=== PATIENT | male | born 1950 | race Caucasian/White ===

== ENCOUNTER 2020-08-23 20:03 | Inpatient (IN) | payer OTHER, MEDICAID ==
[~2020-08-23] VITALS: Ht 172.7 cm; Wt 91.2 kg
[2020-08-23 20:05] VITALS: Ht 172.7 cm; Wt 91.2 kg
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
[2020-08-23 21:32] LABS: BASOPHIL % 0.3 % (0-2); PLATELET COUNT 205 x10^3mcL (130-400)
--- NOTE | 2020-08-23 21:32 | NUR ---
PT TAKEN TO CT, ALL VITALS ARE STABLE. PT EASILY WAKENED WITH VERBAL STIMULI, PT IS ABLE TO STATE HIS NAME AND ALSO HE NOW RECOGNIZES THAT HE IS AT [facility]. CONTINUES WITH SLURRED SLOW SPEECH AND EASILY FALLS BACK TO SLEEP, WILL MONITOR
[2020-08-23 21:37] LABS: RED CELL DISTRIBUTION WIDTH 14.8 % (11.5-14.5)
[2020-08-23 22:00] LABS: ALKALINE PHOSPHATASE 224 U/L (46-116); ALT/SGPT 30 U/L (16-63); AST/SGOT 25 U/L (15-37); BILIRUBIN TOTAL 0.4 mg/dL (0.20-1.00); CARBON DIOXIDE 20.1 mmol/L (21-32); CHLORIDE SERUM 101 mmol/L (98-107); CREATININE SERUM 2.4 mg/dL (0.7-1.3); GFR1 29 mL/min; SODIUM SERUM 131 mmol/L (136-145); TOTAL PROTEIN, SERUM 6.7 g/dL (6.4-8.2)
[2020-08-23 22:02] LABS: ALBUMIN 3.3 g/dL (3.4-5.0)
[2020-08-23 22:04] LABS: GLUCOSE SERUM 553 mg/dL (74-106); POTASSIUM SERUM 7.6 mmol/L (3.5-5.1)
--- NOTE | 2020-08-23 22:18 | NUR ---
PT IN AND OUT OF SLEEP, EASILY WAKENED, SPEECH IS MORE CLEAR. PT AAO X2. VSS, WILL CLOSELY MONITOR. CONTINUES TO DENY CHEST PAIN OR SOB.
[2020-08-23 22:51] LABS: CALCIUM 7.9 mg/dL (8.5-10.1); CARBON DIOXIDE 21.1 mmol/L (21-32); CREATININE SERUM 2.4 mg/dL (0.7-1.3)
[2020-08-23 22:58] LABS: POTASSIUM SERUM 7.1 mmol/L (3.5-5.1)
[2020-08-23 23:05] LABS: UA SPECIFIC GRAVITY 1.025 (1.005-1.035); urine erythrocyte 1+ (NEGATIVE)
[2020-08-23 23:09] LABS: microscopic required? YES
[2020-08-23 23:15] LABS: AMPHETAMINE QUAL UR NONE DETECTED (See below)
--- NOTE | 2020-08-23 23:49 | NUR ---
RECIEVED REPORT FROM JOSELINE TRAN TO ASSUME CARE OF PT.
--- NOTE | 2020-08-24 00:54 | NUR ---
PT SLEEPING IN BED, EASILY WAKENED. PT DENIES PAIN AT THIS TIME, SPEECH IS MORE CLEAR BUT PT COMPLAINS OF "FEELING TIRED". VSS, CALL LIGHT WITHIN REACH, WILL MONITOR
--- NOTE | 2020-08-24 00:56 | NUR ---
RT CALLED FOR NEBULIZER TREATMENT, PER RT NEBULIZED TREATMENTS ARE TO BE DONE AFTER PT COLUMBA SWAB IS CONFIRMED NEGATIVE.
[2020-08-24 01:41] VITALS: BP 150/88
[2020-08-24] MEDS ORDERED: COLCHICINE0.6 M2 PO (01:55)
[2020-08-24] MEDS ORDERED: PROAIR RES117 MCG/Ac INH (01:56)
[2020-08-24] MEDS ORDERED: AMRIX15 M1 PO (01:58)
[2020-08-24] MEDS ORDERED: FEXMID7.5 M1 PO (02:00)
[2020-08-24] MEDS ORDERED: VITAMIN D50000 I4 PO (02:04)
[2020-08-24] MEDS ORDERED: MONTELUKAST SOD10 M1 PO (02:05)
[2020-08-24] MEDS ORDERED: HUMALOG KW100 UNIT/1 SQ (02:05)
[2020-08-24] MEDS ORDERED: LYRICA50 M1 PO (02:06)
[2020-08-24] MEDS ORDERED: PLAVIX75 M1 PO (02:06)
[2020-08-24] MEDS ORDERED: LANTUS SOLOS100 U/M1 SC (02:07)
[2020-08-24] MEDS ORDERED: BUMETANIDE1 MG PO (02:08)
[2020-08-24] MEDS ORDERED: FINASTERIDE1 MG PO (02:08)
[2020-08-24] MEDS ORDERED: AZOR 10-20 MG1 EACH PO (02:09)
[2020-08-24] MEDS ORDERED: PEPCID AC20 M2 PO (02:10)
[2020-08-24] MEDS ORDERED: LIPI20 PO (02:10)
[2020-08-24] MEDS ORDERED: ESCITALOPRAM OX20 MG PO (02:10)
--- NOTE | 2020-08-24 02:34 | NUR ---
REPORT CALLED TO MURTAZA TRAN
--- NOTE | 2020-08-24 02:40 | NUR ---
PT RECIEVED FROM ED VIA [facility] ACCOMPANIED BY NURSE. PT TRANSFERED FROM [facility] TO BED WITH ASSIST. PT A/O X3, ALERT TO PERSON/PLACE/ AND TIME. REORIENTED TO SITUATION AT THIS TIME. PT SLOW TO RESPOND. TELE 14, SR WITH 1ST DEGREE AV BLOCK. PALPABLE PULSES, EDEMA NOTED LLE. BREATHING E/U ON 2L NC. SPO2 96%. DENIES SOB AT THIS TIME. ABD SOFT AND FLAT, DENIES PAIN TO PALPATION. GEN WEAKNESS, PT AMBULATES WITH A CANE AT BASELINE. SCAB NOTED TO L HAND, ION. IV NOTED TO L HAND, IO NOTED TO LLE. BED AT LOWEST POSITION. CALL LIGHT WITHIN REACH. WILL CONTINUE TO MONITOR.
[2020-08-24 03:19] VITALS: BP 152/60
--- NOTE | 2020-08-24 03:54 | NUR ---
PAGED DR. MASON TO REVIEW PT HOME MEDS. WAITING FOR CALL BACK AT THIS TIME.
--- NOTE | 2020-08-24 04:20 | NUR ---
SPOKE TO . HOME MEDS CONTINUED/HELD PER . WILL CONTINUE TO MONITOR.
[2020-08-24 05:19] VITALS: BP 130/56
--- NOTE | 2020-08-24 06:48 | NUR ---
PT RESTING IN BED AT THIS TIME. DENIES PAIN OR DISCOMFORT. PT BREATHING E/U ON 2L. NO S/S OF ACUTE DISTRESS NOTED AT THIS TIME. ALL NEEDS AND CONCERNS ADDRESSED. WILL ENDORSE TO DAY NURSE.
[2020-08-24 07:49] VITALS: BP 146/58
--- NOTE | 2020-08-24 07:50 | NUR ---
RECIEVED PT FROM PREVIOUS SHIFT NURSE. PT SLEEPING W/ BOTH EYES SHUT, EASILY AROUSABLE. RR EVEN AND UNLABORED ON 2L/NC, CHEST RISING EQUALLY. TELE #14 NSR W/ 1ST DEGREE HEART BLOCK. IV NOTED TO LH WNL, AND IO NOTED TO LLE WNL, NO ERYTHEMA, EDEMA, OR DRAINAGE NOTED. NO SIGNS OF ACUTE CHANGE OR DISTRESS NOTED. BED IN LOWEST POSITION, SIDE RAILS UP X2, AND CALL LIGHT WITHIN REACH. WILL CONTINUE TO MONITOR.
--- NOTE | 2020-08-24 07:54 | NUR ---
PATIENT REFUSED NEB AT THIS TIME. NO RESPIRATORY DISTRESS. WILL CONTINUE TO MONITOR
[2020-08-24 08:10] LABS: CALCIUM 8.1 mg/dL (8.5-10.1); CARBON DIOXIDE 19.9 mmol/L (21-32); CREATININE SERUM 2.5 mg/dL (0.7-1.3)
[2020-08-24 08:18] LABS: POTASSIUM SERUM 6.5 mmol/L (3.5-5.1)
[2020-08-24 11:46] VITALS: BP 153/65
--- NOTE | 2020-08-24 13:58 | NUR ---
PT RESTING COMFORTABLY IN BED. NO SIGNS OF ACUTE CHANGE OR DISTRESS NOTED.
[2020-08-24 15:28] LABS: CALCIUM 8.5 mg/dL (8.5-10.1); CARBON DIOXIDE 21.8 mmol/L (21-32); CREATININE SERUM 2.7 mg/dL (0.7-1.3); POTASSIUM SERUM 5.1 mmol/L (3.5-5.1)
--- NOTE | 2020-08-24 16:01 | NUR ---
IO REMOVED. PT TOLERATED WELL.
--- NOTE | 2020-08-24 18:49 | NUR ---
PT RESTING COMFORTABLY IN BED, EASILY AROUSABLE. RR EVEN AND UNLABORED ON 2L/NC, CHEST RISING EQUALLY. TELE #14 NSR W/ 1ST DEGREE HEART BLOCK. NO SIGNS OF ACUTE CHANGE OR DISTRES NOTED. BED IN LOWEST POSITION, SIDE RAILS UP X2, AND CALL LIGHT [place] REACH. WILL ENDORSE CARE TO ONCOMING SHIFT NURSE, AND WILL CONTINUE TO MONITOR.
--- NOTE | 2020-08-24 20:00 | NUR ---
PT. AWAKE, ALERT, ORIENTED TO SELF AND PLACE. DENIES HEADACHE OR DIZZINESS. PT. APPEARS CONFUSED AT TIMES. ABLE TO FOLLOW MOST SIMPLE COMMANDS. SPEECH CLEAR. DENIES CHESTPAIN. BREATH SOUNDS CLEAR THROUGHOUT LUNG MORFIN, RESP. EVEN, UNLABORED. BLL SLIGHTLY DIMINISHED. PT. PLACED ON 2L/NC, O2 SAT. 88% BEFORE NC, NOW 95%. ABD. SOFT AND ROUND. NO C/O ABD. PAIN, DENIES NAUSEA. IV TO RT HAND INTACT. CALL LIGHT WITHIN REACH.
[2020-08-24 20:19] VITALS: BP 161/71
--- NOTE | 2020-08-24 22:17 | NUR ---
PT. PLACED ON CPAP MACHINE. READY TO SLEEP. NO RESP. DISTRESS OR C/O SOB THUS FAR. CALL LIGHT IN REACH.
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
[2020-08-25 05:29] VITALS: BP 170/75
[2020-08-25 06:58] LABS: BASOPHIL % 0.3 % (0-2); PLATELET COUNT 175 x10^3mcL (130-400)
[2020-08-25 07:18] LABS: CALCIUM 7.9 mg/dL (8.5-10.1); CARBON DIOXIDE 23.1 mmol/L (21-32); CREATININE SERUM 2.4 mg/dL (0.7-1.3); POTASSIUM SERUM 4.8 mmol/L (3.5-5.1)
[2020-08-25 07:20] LABS: RED CELL DISTRIBUTION WIDTH 14.9 % (11.5-14.5)
--- NOTE | 2020-08-25 07:56 | NUR ---
RECEIVED PATIENT FROM DATA REDUCTION TECHNICIAN RN. ASSISTED PATIENT TO RESTROOM. ALERT AND ORIENTED A/OX3. PATIENT ON RA AT THIS TIME. NO C/O PAIN OR SOB AT THIS TIME. IVF TO RH INFUSING PER ORDER. ON TELE #14. COMFORT AND SAFETY MEASURES IN PLACE. WILL CONTINUE WITH PLAN OF CARE.
[2020-08-25 07:58] VITALS: BP 181/78
[2020-08-25 11:42] VITALS: BP 164/71
--- NOTE | 2020-08-25 12:17 | NUR ---
PATIENT RESTING IN BED WITH EYES CLOSED, EASILY AROUSABLE. NO C/O SOB. RESPIRATORY DISTRESS OR PAIN AT THIS TIME. ON 2L NC. BEDSIDE GLU 188, 3U OF INSULIN WAS GIVEN. COMFORT AND SAFETY MEASURES IN PLACE. CALL LIGHT WITHIN REACH. WILL CONTINUE TO MONITOR.
[2020-08-25] MEDS ORDERED: NOR10 PO (14:10)
[2020-08-25] MEDS ORDERED: HYDRALAZINE HCL25 MG PO (14:10)
--- NOTE | 2020-08-25 15:08 | NUR ---
PATIENT FOUND ON ROOM AIR WITH A SPO2 75%, PATIENT EDUCATED ON OXYGEN COMPLIANCE. PATIENTS SATURATION IMPROVED TO 95% WHEN PLACED ON 2LPM LUISA/CAN. RN NOTIFIED OF STATUS, WILL CONT. TO MONITOR.
--- NOTE | 2020-08-25 16:02 | NUR ---
SPOKE TO PATIENT'S SISTER, CHERELLE, OVER THE PHONE. UPDATED ON PATIENT'S STATUS. ALL QUESTIONS AND CONCERNS ADDRESSED.
[2020-08-25 16:13] VITALS: BP 137/59
--- NOTE | 2020-08-25 17:30 | NUR ---
PAGED DR JIANG ABOUT PATIENTS O2 SAT OF 75% ON RA. PER DR JIANG, KEEP PATIENT FOR ANOTHER DAY AND ORDER ABG. ABG ORDER PLACED ACCORDINGLY. TECH OBTAINING ABG AT BEDSIDE. PT TOLERATED WELL. WILL CONTINUE TO MONITOR.
--- NOTE | 2020-08-25 19:02 | NUR ---
PATIENT RESTING IN BED WITH EYES CLOSED, EASILY AROUSABLE. PT ON 1L NC O2 SAT 95% NO SOB OR RESPIRATORY DISTRESS NOTED. IV TO RH INFUSING IV FLUIDS ORDERED. COMFORT AND SAFETY MEASURES IN PLACE. CALL LIGHT WITHIN REACH. WILL ENDORSE TO INVESTOR RELATIONS MANAGER RN.
[2020-08-25 19:10] VITALS: BP 149/61
--- NOTE | 2020-08-25 20:22 | NUR ---
ASSESSED PT AT BEGINNING OF SHIFT. PT PRESENTS ALERT ADN ORIENTED X3. DAY RN NOTED HE HAD BOUTS OF CONFUSION DURING THE DAY. VITALS HR 82, BP 149/61 (90), TEMP98.1, RR 20, 2L NC, O2 98%, 0/10 PAIN. CLEAR LUNG SOUNDS UP TOP AND DIMINISHED BILATERALLY IN LOWER LOBES. S1 AND S2 HEARD WITH DENIAL OF CHEST PAIN AT THIS TIME. BOWEL SOUNDS NORMOACTIVE WITH NO COMPLAINTS OF CONSTIPATION. LAST BM WAS 08/23. SENSATION INTACT AND PULSES MODERATE IN ALL EXTREMITIES. LLE EDEMA NOTED UPON ASSESSMENT. WILL CONTINE TO MONITOR PT AT THIS TIME.
--- NOTE | 2020-08-25 20:35 | NUR ---
I HAVE REVIEWED THE DATA COLLECTION BY CHELSEA MELVIN ENTERED ON (DATE/TIME):08/25/2020 7P-7A I CONCUR WITH THE DATA AND ANY EXCEPTIONS OR COMMENTS ARE LISTED BELOW:
--- NOTE | 2020-08-25 22:05 | NUR ---
PTS SISTER CALLED REGARDING PTS HOME EMDCIATION LYRICA. PT ALSO COMPLAINING OF HAVING INCREASED ANXIETY WITHOUT MEDICATION. CALLED DR. JIANG ABOUT STARTING LYRICA HERE IN HOSPITAL AND DR. JIANG GAVE VERBAL FOR REFILL.
--- NOTE | 2020-08-25 22:15 | NUR ---
SISTER CALLED AGAIN AND UPSET AND WANTING TO TALK TO HEAD NURSE RE:LYRICA NOT BEING RESTARTED ALL DAY.CHARGE NURSE INFORMED SISTER THAT LYRICA WAS JUST RESTARTED BY DR. JIANG.
--- NOTE | 2020-08-26 04:56 | NUR ---
PT SLEPT WELL THROUGHOUT THE NIGHT. NO COMPLAINTS OF PAIN. PT WAS LESS ANXIOUS UPON RECEIVING LYRICA MEDICATION AROUND [address] JIANG. WILL CONTINUE TO MONITOR PATIENT AND SHRE WITH ONCOMING NURSE.
--- NOTE | 2020-08-26 06:18 | NUR ---
PT ASLEEP IN ROOM. AUTOMOTIVE GLASS TECHNICIAN DID VITALS. PT OPENED EYES RESPONSE. TOOK PTS BS AND TI WAS 30. RETOOK PTS BS AND IT WAS 28. PUSHED 1 AMP OF D50 AND SAT PATIENT UP TO DRINK ORANGE JUICE WITH SUGAR PACKET. PT LETHARGIC AND DIAPHORETIC BUT RESPONSIVE. WILL [id number] BS AND STAY WITH PT.
[2020-08-26 06:19] VITALS: BP 143/64
--- NOTE | 2020-08-26 06:34 | NUR ---
RETOOK PTS BS AT 0630 AND BS WAS 191. PT IS RESPONSIVE AND FOLLOWS COMMANDS. STILL LETHARGIC BUT MARKED IMPROVEMENT. STILL WILL CONTINUE TO MONITOR PATIENT AND LET KIKO RN KNOW OF IMPROVMENT.
--- NOTE | 2020-08-26 07:21 | NUR ---
BEDSIDE REPORT GIVEN TO AM NURSE.PT REMAINS DROWSY BUT EASILY AROUSABLE.IN NO DISTRESS,
[2020-08-26 07:47] LABS: CALCIUM 7.8 mg/dL (8.5-10.1); CARBON DIOXIDE 19.5 mmol/L (21-32); CREATININE SERUM 2.1 mg/dL (0.7-1.3); POTASSIUM SERUM 4.2 mmol/L (3.5-5.1)
[2020-08-26 08:12] VITALS: BP 112/54
--- NOTE | 2020-08-26 08:22 | NUR ---
RECEIVED PATIENT FROM JUTE BAG CUTTING MACHINE OPERATOR RN. PATIENT IS LETHARGIC AND CONFUSED. ON 2L NC 02 SAT 95% BREATHING UNLABORED AND EQUAL. ON TELE #14. IVF INFUSING PER ORDER TO IV RH. RT AT BEDSIDE FOR BREATHING TREATMENT. COMFORT AND SAFETY MEASURES IN PLACE. WILL CONTINUE WITH PLAN OF CARE.
[2020-08-26 12:19] VITALS: BP 171/75
--- NOTE | 2020-08-26 13:10 | NUR ---
SPOKE TO PATIENTS SISTER AND POOL HAND, CLAIRE. ALL QUESTIONS ADDRESSED AND ANSWERED.
--- NOTE | 2020-08-26 15:34 | NUR ---
IV TO RH WAS REMOVED WHILE PATIENT WAS SLEEPING. IV CATHETER INTACT. NEW IV TO RFA 20G PLACED, IVF INFUSING PER ORDER. PATIENT WEANED OFF NC, SPO2 SAT OF 92% ON RA. WILL CONTINUE TO MONITOR.
[2020-08-26 17:09] VITALS: BP 163/76
--- NOTE | 2020-08-26 19:08 | NUR ---
PATIENT SITTING UP IN BED. ALERT AND AWAKE. BREATHING IS REGULAR AND EVEN, PATIENT ON 2L NC. NO C/O SOB OR PAIN AT THIS TIME. ON TELE #14. IV TO RFA WAS PULLED OUT WITH CATHETER INTACT. NEW IV TO RAC 22G SALINE LOCKED, C/D/I AND PATENT. COMFORT AND SAFETY MEASURES IN PLACE. CALL LIGHT WITHIN REACH. WILL ENDORSE TO SEWING MACHINE OPERATOR RN.
[2020-08-26 19:10] VITALS: BP 173/72
--- NOTE | 2020-08-26 20:09 | NUR ---
PT ALERT IN BED. ALERT X3 BUT HAS SOME MEMORY LAPSES IN REMOTE MEMORY. PT DENIES PAIN AT THIS TIME. PT LUNG SOUNDS CLEAR UP TOP WITH DIMISHED BASES. ON 2L NC AND STURATION 97%. PT DENIES SOB. S1 AND S2 HEARD UPON AUSCULTATION NO CHEST PAIN AT THIS TIME. TELE 16 WITH NSR. VITALS HR 87 BP 173/72, 97%, 18 RR. ABD SOFT AND NON TENDER, NORMOACTIVE BOWEL SOUNDS. LAST BM WAS 08/23 BUT DENIES CONSTIPATION AND STATES HES NOT BEEN EATING VERY MUCH ANYWAY. USES BEDSIDE URINAL. GENREALIZED WEAKNESS AND EDUCATED ON USE OF CALL LIGHT. WILL CONTINUE TO MONITOR.
--- NOTE | 2020-08-26 20:14 | NUR ---
I HAVE REVIEWED THE DATA COLLECTION BY CHELSEA MELVIN ENTERED ON (DATE/TIME):08/26/20 7P-7A I CONCUR WITH THE DATA AND ANY EXCEPTIONS OR COMMENTS ARE LISTED BELOW:
--- NOTE | 2020-08-26 22:03 | NUR ---
PT BS WAS 160 UPON 2100. GAVE 3 UNITS INSULIN AND ONLY 10U OF 20U DOSE OF LANTUS. WILL DO RANDOM TESTING OF SUGAR AROUND 0000 DUE TO PREVIOUS NIGHTS EVENTS.
--- NOTE | 2020-08-27 00:06 | NUR ---
PTS BS RETAKEN AROUND 2330. READING OF 106 TAKEN. GAVE PT SNACKS AND HAD PT EAT THEM BEFORE GOING TO BED TO REDUCE THE RISK FOR ANOTHER HYPOGLYCEMIC EPISODE. PT ATE PACKET OF GRAHM CRACKERS, JELLO, AND SALTINES BEFORE BEING PUT ON BIPAP BY RT. WILL CONTINUE TO MONITOR.
--- NOTE | 2020-08-27 04:47 | NUR ---
PT WAS PUT ON BIPAP BY RT FOR THE NIGHT. PT TOLERATED WELL AND SLEPT SOUNDLY. GAVE PT ONLY 10 UNITS OF LANTUS FOR THE NIGHT DUE TO EVENING BS BEING 160. RECHECKED BS AROUND 11PM AND PTS BS WAS 109. TOLD PT TO EAT SOME SNACKS BEFORE BED WHICH PT DID. NO COMPLAINTS OF PAIN THROUGHOUT THE NIGHT. WILL CONTINUE TO MONTITOR AND SHARE WITH ONCOMING RN.
[2020-08-27 05:31] VITALS: BP 166/65
--- NOTE | 2020-08-27 06:24 | NUR ---
AWOKE PT FOR BS CHECK. PT AROUSED EASILY AND RESPONSIVE AND CARRIED CONVERSATION. BS WAS 58 AND REPAT 43. GAVE PT TWO JUICES AND GRAHMN CRACKERS. FOLLOWED WITH 1 AMP D50. PT STATES HE DOES FEEL SHAKY BUT IS STILL RESPONSIVE. WILL NOTIFY MD AND CONTINUE TO MONITOR AND WILL RECHECK BS IN 20 MIN.
[2020-08-27 07:47] LABS: BASOPHIL % 0.3 % (0-2); PLATELET COUNT 195 x10^3mcL (130-400); RED CELL DISTRIBUTION WIDTH 14.3 % (11.5-14.5)
[2020-08-27 08:12] VITALS: BP 151/70
[2020-08-27 08:54] LABS: CALCIUM 8.3 mg/dL (8.5-10.1); CARBON DIOXIDE 21.3 mmol/L (21-32); CREATININE SERUM 2.1 mg/dL (0.7-1.3); POTASSIUM SERUM 4.9 mmol/L (3.5-5.1)
--- NOTE | 2020-08-27 09:08 | NUR ---
RECEIVED PATIENT FROM CONSTRUCTION MILLWRIGHT RN. PATIENT RESTING WITH EYES CLOSED IN BED. AROUSABLE UPON STIMULI, RESPONDS TO QUESTIONS. PATIENT ON 2L NC O2 SAT 99%. BREATHING UNLABORED AND EQUAL. NO C/O SOB OR PAIN AT THIS TIME. IV TO R HAND 22G C/D/I AND PATENT. COMFORT AND SAFETY MEASURES IN PLACE. WILL CONTINUE WITH PLAN OF CARE.
[2020-08-27 12:27] VITALS: BP 150/58
--- NOTE | 2020-08-27 13:21 | NUR ---
PATIENT O2 SAT ON RA 88-90%. BREATHING UNLABORED AND EQUAL. NO SOB NOTED. WILL CONTINUE TO MONITOR.
--- NOTE | 2020-08-27 14:03 | NUR ---
SPOKE TO PATIENTS CHERELLE MCKEON TO CONFIRM THAT PATIENT TAKES BUMEX AT HOME. BOTH PATIENT AND SISTER (INSPECTOR MACHINED PARTS) CONFIRM BUMEX IS PART OF PT HOME MED REGIMEN.
--- NOTE | 2020-08-27 15:53 | NUR ---
DR JIANG WAS NOTIFIED THAT HOME O2 EVAL FOR PATIENT WAS NOT DONE YET. PER PATIENT OK TO BE DISCHARGED TOMORROW 08/28/20 INSTEAD OF TODAY. SPOKE TO PATIENT AND PATIENT COMPLIANT.
[2020-08-27 16:06] VITALS: BP 153/66
--- NOTE | 2020-08-27 18:35 | NUR ---
PATIENT RESTING WITH EYES CLOSED IN BED. EASILY AROUSABLE. IV TO RH 22G INFILTRATED. IV DC WITH CATHETER INTACT. IV TO LH 24G C/D/I, PATENT AND SALINE LOCKED. COMFORT AND SAFETY MEASURES IN PLACE. WILL ENDORSE TO MANAGER ACTION RN.
[2020-08-27 19:15] VITALS: BP 129/55
--- NOTE | 2020-08-27 20:29 | NUR ---
UPON INITIAL SHIFT ASSESSMENT PT RESING IN BED EASY TO AROUSE. ALERT AND ORIENTED X3 WITH SOME ISSUES WITH REMOTE MEMORY. PT EXCITED TO GET OUT OF HOSPTAL TOMORROW. PT REPOISITIONED IN BED, SOME SOB WITH REPOSITIONING. LUNG SOUNDS CLEAR TO AUSCULTATION, NO ACUTE DISTRESS, O2 SATS 93 ON RA. S1 AND S2 HEARD WITH DENIAL OF CHEST PAIN. BOWEL SOUNDS NORMOACTIVE X4, SOFT AND NON TENDER TO PALPATION. NO LOSS OF SENSATION IN EXTREMITIES. PULSES MODERATE IN ALL EXTREMIITIES. BRUISE LOCATED ON R LOWER BACK SINCE ADMISSION. PT DID NOT EAT DINNER ON TRAY. BS WAS 50 AND REPEAT 43. HELD EVENING INSULIN AND LANTUS. PT GIVEN JUICE AND SNACKS. PT RESPONSIVE AND CARRIES CONVERSATION. WILL RECHECK BS IN 30 MIN. WILL CONTINUE TO MONITOR PT AND ASSESS NEEDED.
--- NOTE | 2020-08-27 21:41 | NUR ---
I HAVE REVIEWED THE DATA COLLECTION BY CHELSEA MELVIN ENTERED ON (DATE/TIME):08/27/2020 7P-7A I CONCUR WITH THE DATA AND ANY EXCEPTIONS OR COMMENTS ARE LISTED BELOW:
[2020-08-27 22:38] VITALS: BP 158/70
--- NOTE | 2020-08-28 04:43 | NUR ---
PT SLEPT WELL THROUGH THE NIGHT. PT EASY TO AROUSE AND NO S/S OF HYPOGLYCEMIA PRESENT. PT STAYED ON 1L NC THROUGH THE NIGHT AND TOLERATED WELL. PT USED URINAL 3X IN THE NIGHT AND ABLE TO USE INDEPENDENTLY. WILL CONTINUE TO MONITOR AND SHARE WITH ONCOMING RN.
[2020-08-28 05:45] VITALS: BP 169/68
[2020-08-28 07:28] LABS: CALCIUM 8.3 mg/dL (8.5-10.1); CARBON DIOXIDE 24.7 mmol/L (21-32)
[2020-08-28 08:24] VITALS: BP 179/72
[2020-08-28 08:31] LABS: BASOPHIL % 0.7 % (0-2); PLATELET COUNT 168 x10^3mcL (130-400)
[2020-08-28 08:37] LABS: RED CELL DISTRIBUTION WIDTH 15.7 % (11.5-14.5)
--- NOTE | 2020-08-28 11:11 | NUR ---
PATIENT RECEIVED AWAIT AND ORIENTED TIMES FOUR. PATIENT DOES ANANT SEEM FORGETFUL AT THIS TIME BUT IS SLOW TO ANSWER. HE HAS HX OF HTN. CDM, STAGE THREE RENAL FAILURE, ANXIETY AND DEPRESSION. PATIENT HAS BEEN NOTE DTO HAVE AV BLOCK PATIENT.HE HAS BEEN ON 02 AT 1 LITER VIA NASAL CANNULA AND FOR 02 AT HOME.WAITING FOR THIS TO BE DELIVERED PRIOR TO DISCHARGE HOME HE LIVES [place] HIS SISTER AND SHE IS WANTING AN UPDATE. SO FAR NO COMPLETED DISCHARGE YET. CALLED AND GIVEN UPDATE. THE SISTER WANTS TO EXPEDIATE THE DISCHARGE, BUT IT IS GOING FAST POSSIBLE WITH THE CONDITIONS IS. PATIENT HAS NOTED LABS OF THE H AHD OF 8.6/26, AND THE BUN AT 31.0 AND CREATININE AT 2.0. PATIENT HS LAST BLOOD SUGAR AT 108 AND HE TOLERATED AND ATE A GOOD BREAKFAST THE SITER INDICATED HE DRINKS ALOT AND SHE BELIEVES THIS IS THE IS WHY THE SUGAR WAS HIGH WHEN HE WAS AT HOME. NOW TOO LOW SEVERAL TIMES AND THE PATIENT NEEDED DEXTROSE. PATIENT TOLERATED OOB AND WAS ABLE TO AMBULATE TO AN FROM THE RESTROOM. VITALS AT [facility] TIME AT 98.8, 82, 18, 179/70, 92%.
[2020-08-28 12:22] VITALS: BP 175/68
[2020-08-28 13:08] VITALS: BP 175/68
--- NOTE | 2020-08-28 15:14 | NUR ---
PATIENT AWARE OF PLAN FOR DISCHARGE. AWAITING ARRANGMENT FOR 02 TO ARRIVE TO HIS HOME PRIOR TO DISCHARGE HOME. SPOKE RUSSEL KIRK ORGANIC SEARCH LEAD AND AWAITING CONFIRMATION BACK.
--- NOTE | 2020-08-28 16:47 | NUR ---
PATIENT IS FOR DISCHARGE WHEN THE 02 AT HOME NAD THE O2 TO GO ARRIVES. PATIENT HAS BEEN ANXIOUS TO GO HOME.
[2020-08-28 17:06] VITALS: BP 160/60
--- NOTE | 2020-08-28 18:10 | NUR ---
PATIEN FOR DISCHARGE HOME PATIENT HAS BEEN WAITING FOR THE 02 FOR HOME AND FOR TO GO HOME PORTABLE.
--- NOTE | 2020-08-28 19:39 | NUR ---
PATIENT BLOOD SUGAR POST THE MEAL IS 234 BUT REFUSED COVERAGE AT THIS TIME PATIENT HAD BEEN VEYR LOW ON HIS BLOOD SUGAR AND SINCE HE HAS COMPLETED HIS MEAL.
--- NOTE | 2020-08-28 19:40 | NUR ---
RECEIVED PT IN BED RESTING QUIETLY. HE IS ALERT,ORIENTED X4. PT IS FOR DISCHERAGE HOME TONIGHT AND JUST WAITING FOR HOME O2 TO BE DELIVERED. HE HAS NO C/O PAIN OR DISCOMFORT AT THIS TIME.
--- NOTE | 2020-08-28 22:15 | NUR ---
PT D/CD HOME W/ HOME O2. PT IN STABLE CONDITION UPON DISCHARGE. PT TOOK ALL BELONGINGS. FAMILY CAME TO UTILITY SALES REPRESENTATIVE PT.
== END 2020-08-28 22:20 | disposition home or self-care (01) | DRG 917 ==
LOC: ED 20:03 → DU 08-24 00:30
PROVIDERS: Emergency Medicine; Internal Medicine; Internal Medicine Nephrology; ADMIT Hospitalist; ATTEND Hospitalist
DX: T40.601A Poisoning by unspecified narcotics, accidental (unintentional), initial encounter (principal); J96.22 Acute and chronic respiratory failure with hypercapnia; J96.21 Acute and chronic respiratory failure with hypoxia; N17.9 Acute kidney failure, unspecified; I13.0 Hypertensive heart and chronic kidney disease with heart failure and stage 1 through stage 4 chronic kidney disease, or unspecified chronic kidney disease; N18.4 Chronic kidney disease, stage 4 (severe); Z20.828 Contact with and (suspected) exposure to other viral communicable diseases; E11.22 Type 2 diabetes mellitus with diabetic chronic kidney disease; I50.9 Heart failure, unspecified; M10.9 Gout, unspecified; E11.65 Type 2 diabetes mellitus with hyperglycemia; E87.5 Hyperkalemia; E78.5 Hyperlipidemia, unspecified; I25.10 Atherosclerotic heart disease of native coronary artery without angina pectoris; G47.00 Insomnia, unspecified; N40.0 Benign prostatic hyperplasia without lower urinary tract symptoms; Z88.2 Allergy status to sulfonamides; Z88.8 Allergy status to other drugs, medicaments and biological substances; Z86.73 Personal history of transient ischemic attack (TIA), and cerebral infarction without residual deficits; Y92.89 Other specified places as the place of occurrence of the external cause; Z79.4 Long term (current) use of insulin
CPT/HCPCS: 36600; 82962; G0378; G0480; J0610; J1815; J3490; J7030